=== PATIENT | female | born 1945 | race Hispanic/Latino ===

== ENCOUNTER 2017-12-23 09:46 | Observation (INO) | payer MEDICARE, OTHER ==
[~2017-12-23] VITALS: Ht 152.4 cm; Wt 46.3 kg
[2017-12-23 10:42] LABS: BASOPHILS % 0.5 % (0.0-1.0); EOSINOPHILS # (AUTO) 0.1 (0.0-0.4); EOSINOPHILS % 0.8 % (0.0-6.0); HEMATOCRIT 39.6 % (34.2-44.1); HEMOGLOBIN 12.9 g/dL (12.0-16.0); LYMPHOCYTES # (AUTO) 2.4 (1.0-3.2); LYMPHOCYTES % 38.6 % (18.0-39.1); MEAN CORPUSCULAR HEMOGLOBIN 27.6 pg (28-32); MEAN CORPUSCULAR HGB CONC 32.6 g/dL (31-35); MEAN CORPUSCULAR VOLUME 84.8 fL (81-99); MONOCYTES # (AUTO) 0.4 (0.2-0.8); MONOCYTES % 6.4 % (4.4-11.3); NEUTROPHILS # (AUTO) 3.3 (2.1-6.9); NEUTROPHILS % 53.4 % (38.7-80.0); PLATELET COUNT 294 x10e3/uL (140-360); RED BLOOD COUNT 4.67 x10e6/uL (3.6-5.1); RED CELL DISTRIBUTION WIDTH 13.7 % (11.7-14.4)
--- NOTE | 2017-12-23 11:02 | Diagnostic Imaging Report ---
PROCEDURE: CHEST SINGLE (PORTABLE) COMPARISON: None. INDICATIONS: LEFT SIDE CHEST PAIN, WITH LEFT ARM TINGLING FINDINGS: LUNGS: No consolidations or edema. PLEURA: No effusions or pneumothorax. HEART \T\ MEDIASTINUM: The heart is within normal size-limits. BONES \T\ SOFT TISSUES: No acute findings. CONCLUSION: No acute thoracic abnormality. Dictated by: Dharmesh Avila M.D. on 12/23/2017 at 11:05 Electronically approved by: Dharmesh Avila M.D. on 12/23/2017 at 11:05
[2017-12-23 11:05] LABS: ALANINE AMINOTRANSFERASE 13 IU/L (0-55); ALBUMIN 4.1 g/dL (3.5-5.0); ALBUMIN/GLOBULIN RATIO 1.4 (0.8-2.0); ALKALINE PHOSPHATASE 73 IU/L (40-150); BLOOD UREA NITROGEN 21 mg/dL (7-26); BUN/CREATININE RATIO 28 (6-25); CALCIUM 9.9 mg/dL (8.4-10.2); CARBON DIOXIDE 27 mmol/L (22-29); CHLORIDE 105 mmol/L (98-107); CREATINE KINASE 123 IU/L (29-168); CREATININE, SERUM 0.75 mg/dL (0.57-1.11); EST GLOMERULAR FILTRATION RATE > 60 ML/MIN (60-); GLUCOSE 102 mg/dL (74-118); SODIUM 139 mmol/L (136-145)
[2017-12-23] MEDS ORDERED: SODIUM CHLORIDE FLUSH 10 ML SYR INJ PRN (12:30)
[2017-12-23] MEDS ORDERED: ASPIRIN 81 MG CHEW TAB PO ONE (12:30)
[2017-12-23] MEDS ORDERED: NITROGLYCERIN 0.4 MG SUBL SL PRN (12:30)
--- OUTSIDE RECORDS SUMMARY | 2017-12-23 12:45 | XMS REPORT ---
Author Author [facility] Address Unknown Phone Unavailable Care Team Providers Care [employer] Management Officer Name Role Phone GREGORY JARA Unavailable Unavailable Problems This patient has no known problems. Allergies, Adverse Reactions, Alerts This patient has no known allergies or adverse reactions. Medications This patient has no known medications. Results Test Description Test Time Test Comments Text Results Atomic Results Result Comments CHEST SINGLE (PORTABLE) [place] [address] Patient Name: ENRIQUE BAH MR #: [id number] : 1945 Age/Sex: 72/F Req #: [id number] Adm Physician: Ordered by: GREGORY JARA MD Report #: [id number] Location: ER Room/Bed: Procedure: DX/CHEST SINGLE (PORTABLE) Exam Date: 12/23/17 Exam Time: 1030 REPORT STATUS: Signed PROCEDURE: CHEST SINGLE (PORTABLE) COMPARISON: None. INDICATIONS: LEFT SIDE CHEST PAIN , WITH LEFT ARM TINGLING FINDINGS: LUNGS: No consolidations or edema. PLEURA: No effusions or pneumothorax. HEART T MEDIASTINUM: The heart is within normal size-limits. BONES T SOFT TISSUES: No acute findings. CONCLUSION: No acute thoracic abnormality. Dictated by: Alma Diallo M.D. on 12/23/2017 at 11:05 Electronically approved by: Alma Diallo M.D. on 12/23/2017 at 11:05 Dictated By: ALMA DIALLO MD [id number] Transcribed By: RONI on 12/23/17 1105 COPY TO: GREGORY JARA MD
[2017-12-23 14:00] VITALS: BP 135/60
[2017-12-23] MEDS ORDERED: ALPRAZOLAM0.25 MG PO (15:09)
[2017-12-23] MEDS ORDERED: TRAVATAN Z5 ML OP (15:09)
[2017-12-23] MEDS ORDERED: ULTRAM50 MG PO (15:09)
[2017-12-23] MEDS ORDERED: ARICEPT5 MG PO (15:09)
[2017-12-23] MEDS: TRAMADOL HCL 50 MG TAB PO SCH (16:09)
[2017-12-23 17:10] VITALS: BP 122/56
[2017-12-23 18:45] LABS: CREATINE KINASE 117 IU/L (29-168)
[2017-12-23 20:13] VITALS: BP 113/53
[2017-12-23 20:14] VITALS: BP 87/47
[2017-12-23] MEDS ORDERED: TRAVOPROST(OPTH) 2.5 ML BTL OP SCH (21:00)
[2017-12-23] MEDS ORDERED: DONEPEZIL HCL 5 MG TAB PO SCH (21:00)
[2017-12-23 21:12] VITALS: BP 113/53
[2017-12-23] MEDS: ALPRAZOLAM 0.25 MG TAB PO SCH (21:12)
[2017-12-24] VITALS: BP 91/46
[2017-12-24 02:54] LABS: CREATINE KINASE 92 IU/L (29-168)
[2017-12-24 04:00] VITALS: BP 105/46
[2017-12-24 07:16] LABS: BASOPHILS % 0.3 % (0.0-1.0); EOSINOPHILS # (AUTO) 0.1 (0.0-0.4); HEMOGLOBIN 11.3 g/dL (12.0-16.0); LYMPHOCYTES # (AUTO) 2.2 (1.0-3.2); LYMPHOCYTES % 32.6 % (18.0-39.1); MEAN CORPUSCULAR HEMOGLOBIN 27.4 pg (28-32); MEAN CORPUSCULAR HGB CONC 32.3 g/dL (31-35); MEAN CORPUSCULAR VOLUME 84.7 fL (81-99); MONOCYTES # (AUTO) 0.5 (0.2-0.8); MONOCYTES % 7.8 % (4.4-11.3); NEUTROPHILS # (AUTO) 3.9 (2.1-6.9); NEUTROPHILS % 58.2 % (38.7-80.0); PLATELET COUNT 251 x10e3/uL (140-360); RED BLOOD COUNT 4.13 x10e6/uL (3.6-5.1); RED CELL DISTRIBUTION WIDTH 13.9 % (11.7-14.4)
[2017-12-24 07:22] VITALS: BP 124/56
[2017-12-24 07:45] LABS: BLOOD UREA NITROGEN 18 mg/dL (7-26); BUN/CREATININE RATIO 26 (6-25); CALCIUM 9.2 mg/dL (8.4-10.2); CARBON DIOXIDE 26 mmol/L (22-29); CHLORIDE 108 mmol/L (98-107); CHOL/HDL RATIO 3.8 (3.0-3.6); CHOLESTEROL 233 MD/DL (0-199); CREATININE, SERUM 0.69 mg/dL (0.57-1.11); EST GLOMERULAR FILTRATION RATE > 60 ML/MIN (60-); GLUCOSE 94 mg/dL (74-118); HDL CHOLESTEROL 61 MG/DL (40-60); LDL CHOLESTEROL 154 MG/DL (60-130); SODIUM 141 mmol/L (136-145); TRIGLYCERIDES 92 MG/DL (0-149)
[2017-12-24] MEDS ORDERED: ASPIRIN 81 MG ENTERIC COATED PO SCH (09:00)
[2017-12-24] MEDS: TRAMADOL HCL 50 MG TAB PO SCH (09:00)
[2017-12-24 09:20] VITALS: BP 124/56
[2017-12-24] MEDS: ALPRAZOLAM 0.25 MG TAB PO SCH (09:22)
[2017-12-24] MEDS ORDERED: TRAMADOL HCL 50 MG TAB PO PRN (09:30)
[2017-12-24 11:28] VITALS: BP 114/55
--- NOTE | 2017-12-24 15:44 | History and Physical ---
THE PATIENT IS IN OBSERVATION. PCP: Estuardo Phan MD CHIEF COMPLAINT: Atypical chest pain. HISTORY OF PRESENT ILLNESS: Patient is a 72-year-old female having some left-sided chest pain associated with movement of her left upper extremity and also with palpation. Chest pain completely resolved. Patient had no chest pain when she was in the emergency room; but because of her age, she was placed in observation. PAST MEDICAL HISTORY: Hypertension, panic disorder, anxiety. PAST SURGICAL HISTORY: Noncontributory. SOCIAL HISTORY: Patient does not smoke or use alcohol. No recreational drugs. ALLERGIES: PENICILLIN, IODINE. HOME MEDICATIONS: List is reviewed. REVIEW OF SYSTEMS: No chest pain. No shortness breath. PHYSICAL EXAMINATION GENERAL: The patient is in no acute distress. She is awake. VITAL SIGNS: Temperature is 98. Blood pressure 110/62. Pulse rate 80. Respirations 18. HEENT: Normocephalic, atraumatic, anicteric. NECK: Supple grossly. PULMONARY: Diminished breath sounds without any wheezing or rales. CARDIOVASCULAR: S1 and S2. Regular rate and rhythm. ABDOMEN: Soft, unremarkable. EXTREMITIES: No gross cyanosis or edema. NEUROLOGIC: No gross focal deficit. LABORATORY: Cardiac enzymes are negative times 3 sets. Other lab work otherwise unremarkable. IMPRESSION 1. Chest pain most likely secondary to panic attack, anxiety attack. 2. Baseline hypertension, stable. PLAN: Patient is to go home today. Through the bundler, the patient will see her family doctor, Dr. Estuardo Phan, for planning cardiac workup as an outpatient. The patient is otherwise stable. She will resume her home medications. Job#: [id number]
--- NOTE | 2017-12-25 13:00 | Discharge Summary ---
PCP: Dr. Estuardo Phan FINAL DIAGNOSES 1. Atypical chest pain, most likely anxiety disorder with panic attack. 2. Stable hypertension. SUMMARY: Patient is a 72-year-old female with no current chest pain. Cardiac enzymes negative. Chest x-ray is negative. Workup consistent with panic disorder most likely. Chest pains are atypical. Cardiac enzymes negative. No sign of cardiac event. However, the patient will go home today per her wishes. She will follow up with Dr. Estuardo Phan, who will refer her to outpatient cardiac workup. The patient is stable. Job#: [id number]
== END 2017-12-24 12:04 | disposition home or self-care (01) ==
LOC: ER 09:46 → ERHOLD 12:43 → MED/SURG 12:46
PROVIDERS: ADMIT Internal Medicine; ATTEND Internal Medicine
DX: R07.89 Other chest pain (principal); I10 Essential (primary) hypertension; F41.0 Panic disorder [episodic paroxysmal anxiety]; F41.9 Anxiety disorder, unspecified
CPT/HCPCS: 36415 ×2; 71045; 80048; 80053; 80061; 82550 ×2; 82553 ×2; 84484 ×2; 85025 ×2; 93005; 99284; G0378 ×2

== ENCOUNTER 2022-02-22 13:29 | Emergency (ER) | payer MEDICARE ==
[~2022-02-22] VITALS: Ht 304.8 cm; Wt 46.3 kg
[~2022-02-22 13:29] MED LIST: ALPRAZOLAM0.25 MG PO; ARICEPT5 MG PO; TRAVATAN Z5 ML OP; ULTRAM50 MG PO
[2022-02-22] MEDS ORDERED: SODIUM CHLORIDE 0.9% 1000ML 1,000 ML IV SCH ×2 (13:45→16:30)
[2022-02-22 14:00] LABS: BASOPHILS % 0.2 % (0.0-1.0); HEMATOCRIT 38.3 % (34.2-44.1); HEMOGLOBIN 12.1 g/dL (12.0-16.0); LYMPHOCYTES # (AUTO) 1.7 (1.0-3.2); LYMPHOCYTES % 33.5 % (18.0-39.1); MEAN CORPUSCULAR HEMOGLOBIN 27.6 pg (28-32); MEAN CORPUSCULAR HGB CONC 31.6 g/dL (31-35); MEAN CORPUSCULAR VOLUME 87.2 fL (81-99); MONOCYTES # (AUTO) 0.4 (0.2-0.8); MONOCYTES % 7.7 % (4.4-11.3); NEUTROPHILS # (AUTO) 2.9 (2.1-6.9); NEUTROPHILS % 58.2 % (38.7-80.0); PLATELET COUNT 97 x10e3/uL (140-360); RED BLOOD COUNT 4.39 x10e6/uL (3.6-5.1); RED CELL DISTRIBUTION WIDTH 13.6 % (11.7-14.4)
[2022-02-22 14:21] LABS: ALBUMIN 2.9 g/dL (3.5-5.0); ALBUMIN/GLOBULIN RATIO 1.2 (0.8-2.0); CREATININE, SERUM 0.75 mg/dL (0.57-1.11); MAGNESIUM 1.7 MG/DL (1.3-2.1); PHOSPHORUS 2.9 MG/DL (2.3-4.7)
[2022-02-22 14:22] LABS: CALCIUM 6.9 mg/dL (8.4-10.2)
[2022-02-22] MEDS ORDERED: CALCIUM GLUC 1 G/50 ML NACL 100 ML IV ONE (15:15)
[2022-02-22] MEDS ORDERED: CEFTRIAXONE 1 GM VIAL IM ONE (15:25)
[2022-02-22] MEDS ORDERED: POTASSIUM CHLORIDE 10MEQ EA PO ONE (15:30)
[2022-02-22] MEDS ORDERED: LEVETIRACETAM 500MG/5ML VIAL 1,000 MG in SODIUM CHLORIDE 0.9% 100 ML IV ONE (15:30)
[2022-02-22 15:36] LABS: THYROID STIMULATING HORMONE 1.326 uIU/mL (0.350-4.940)
[2022-02-22 16:35] LABS: CLARITY,URINE SL CLOUDY (CLEAR); COLOR,URINE YELLOW (YELLOW); LEUKOCYTE ESTERASE ,URINE SMALL (NEGATIVE); NITRITE,URINE NEGATIVE (NEGATIVE); PROTEIN,URINE DIPSTICK NEGATIVE (NEGATIVE)
[2022-02-22 16:36] LABS: AMPHETAMINES SCREEN,URINE NEGATIVE (NEGATIVE); BENZODIAZEPINES SCREEN,URINE NEGATIVE (NEGATIVE); KETONES,URINE NEGATIVE (NEGATIVE); PHENCYCLIDINE SCREEN,URINE NEGATIVE (NEGATIVE); URINE UROBILINOGEN 0.2 mg/dL (0.2 - 1)
[2022-02-22 16:45] LABS: AMORPHOUS SEDIMENT,URINE FEW (FEW); BACTERIA,URINE MANY /HPF
[2022-02-22] MEDS ORDERED: BIMATOPROST(OPTH) 2.5 ML BOTTLE OP SCH (21:00)
[2022-02-23] MEDS ORDERED: POTASSIUM CHLORIDE 20 MEQ TAB CR PO SCH (09:00)
== END 2022-02-22 19:41 | disposition other institution (70) ==
LOC: ER 13:36
DX: R56.9 Unspecified convulsions (principal); U07.1 COVID-19; N39.0 Urinary tract infection, site not specified; E83.51 Hypocalcemia; E87.6 Hypokalemia; F03.90 Unspecified dementia, unspecified severity, without behavioral disturbance, psychotic disturbance, mood disturbance, and anxiety
CPT/HCPCS: 36415; 70450; 71045; 80053; 80307; 81001; 82140; 83605; 83735; 83970; 84100; 84443; 85025; 87040; 99284; J0696; J1953; J7030; J7050; U0002